=== PATIENT | male | born 1935 | race Caucasian/White ===

== ENCOUNTER → 2019-11-29 | Outpatient (CLI) | payer BC ==
[2015-11-08 09:25] VITALS: BP 125/70
[~2019-11-29] MED LIST: ASCO-219 PO; CALCIUM 500+VI1 EACH PO; CONTRAST GIVEN. MC PRN; CYAN100070 PO; GLUC1CAP80 PO; IOHEXOL 240 MG/ML 50ML VIAL. PO ONE; IOHEXOL 300 MG/ML 100ML VIAL. IV ONE; MELO15TA23 PO; METF500T16 PO; SIMV20TA18 PO; SIMV40TA18 PO
--- NOTE | 2019-11-29 16:24 | RAD ---
CT CHEST ABD PELVIS W/CONTRAST Indication: Malignant neoplasm of the ascending colon Technique: Postcontrast CT imaging was performed of the chest, abdomen, pelvis, multiplanar reconstruction images submitted. One or more of the following individualized dose reduction techniques were utilized for this examination: 1. Automated exposure control 2. Adjustment of the mA and/or kV according to patient size 3. Use of iterative reconstruction technique. Comparison: 01/18/2016; October 19, 2015. Chest Findings: Small focus of somewhat more linear-appearing density of the right upper lobe near the apex likely fibrotic change also linear likely fibrotic change left lung apex. There is also linear-appearing/reticular density of the right upper lobe abutting the pleural surface image 23 series 2, similar in appearance. There is again small partially calcified subpleural right lower lobe nodule image 31 series 2. No new suspicious pulmonary nodularity, infiltrate, pleural or pericardial fluid, or pneumothorax identified. Small 0.5 cm subpleural left lower lobe nodule image 48 series 2 is stable. Tubular ascending thoracic aorta is again ectatic about 4 cm, no dissection flap identified. There is again coronary calcification. No new significantly enlarged nodes are identified of the chest. There is again multilevel thoracic spondylosis. IMPRESSION: 1. No new suspicious pulmonary nodularity or chest lymphadenopathy is identified. 2. There is emphysema. 3. There is coronary calcification. 4. There is again ectatic ascending thoracic aorta about 4 cm. Abdomen pelvis FINDINGS: No new focal abnormality is identified of the pancreas, liver, spleen. Both kidneys enhance, no hydronephrosis. There is again relative atrophy of the right kidney comparing with the left, also lobulated contour greater superiorly of the right kidney which is stable in appearance. There is scattered plaque of the abdominal aorta and iliac arteries. Bowel is not significantly dilated. There is no free fluid or free air. No new significant lymphadenopathy is identified. There is no new adrenal nodularity. Gallbladder is present without obvious intraluminal abnormality by CT. There is prostatomegaly about 5.6 m transverse by 4.4 cm AP by about 4.8 cm CC with mild indentation upon the urinary bladder. There is again some fat in the inguinal canals greater on the left, no bowel. There is multilevel lumbar degenerative disc disease, also facet degenerative change. There is again shallow ventral hernia near the umbilicus containing partial wall of small bowel best seen image 43 series 6, similar appearance. IMPRESSION: 1. There is no new evidence of metastatic disease of the abdomen or pelvis. 2. There is again relative atrophy of the right kidney comparing with the left, also stable lobulated contour of the superior right kidney. 3. There is stable small, shallow ventral hernia containing partial wall of the small bowel. 4. There is mild prostatomegaly, prostate cancer screening advised if not already performed. Electronically signed by: Silas Lagunas MD (11/29/2019 4:21 PM) [id number]
== END | disposition home or self-care (01) ==
LOC: CT 08:50
PROVIDERS: ATTEND Internal Medicine Hematology & Oncology
DX: C18.2 Malignant neoplasm of ascending colon (principal); M47.814 Spondylosis without myelopathy or radiculopathy, thoracic region; J43.8 Other emphysema; I25.10 Atherosclerotic heart disease of native coronary artery without angina pectoris; I77.810 Thoracic aortic ectasia; R91.1 Solitary pulmonary nodule; N26.1 Atrophy of kidney (terminal); K43.9 Ventral hernia without obstruction or gangrene; M51.36 Other intervertebral disc degeneration, lumbar region; I70.0 Atherosclerosis of aorta
CPT/HCPCS: 71260; 74177; Q9966; Q9967

== ENCOUNTER 2020-05-30 16:55 | Emergency (ER) | payer BC ==
[~2020-05-30] VITALS: Ht 177.8 cm; Wt 72.2 kg
[~2020-05-30 16:55] MED LIST changes: -ASCO-219 PO; +ASCO500T53 PO; -CONTRAST GIVEN. MC PRN; -IOHEXOL 240 MG/ML 50ML VIAL. PO ONE; -IOHEXOL 300 MG/ML 100ML VIAL. IV ONE
--- NOTE | 2020-05-30 18:34 | PHYS DOC ---
Past Medical History Past Medical History: Cancer, Constipation, Other Additional Past Medical Histor: CROHNS DISEASE, NEUROPATY, COLON CANCER Past Surgical History: Cancer Surgery Smoking Status: Former Smoker Alcohol Use: Occasionally General Adult EDM: Chief Complaint: LOWER BACK PAIN OR INJURY HPI: HPI: Patient is a 84 year old male with a past medical history of crohns, hyperlipedmia, and restless leg syndrome presents with the chief complaint right lower back/flank pain x 2 days. Pain located right lower back/flank with radiation to left lower abdomen. Patient denies any nausea or vomiting. Patient states similar symptoms in the past related to crohns flare up. Patient states usually crohns with constipation causes his current symptoms. His normal treatment with crohns medications and miralax not relieving symptoms as usual. Patient states he yesterday and several small BMs and just prior to arrival a large BM but pain continues. History obtained from the patient. Patient is alert and x4. Patient arrived by private vehicle he is accompanied by family member. Review of Systems: Review of Systems: Constitutional: Denies fever or chills. [] Eyes: Denies change in visual acuity. [] HENT: Denies nasal congestion or sore throat. [] Respiratory: Denies cough or shortness of breath. [] Cardiovascular: Denies chest pain or edema. [] GI: Positive abdominal pain positive constipation no nausea no vomiting no diarrhea : Denies dysuria. [] Musculoskeletal: Denies back pain or joint pain. [] Integument: Denies rash. [] Neurologic: Denies headache, focal weakness or sensory changes. [] Endocrine: Denies polyuria or polydipsia. [] Lymphatic: Denies swollen glands. [] Psychiatric: Denies depression or anxiety. [] Heart Score: Risk Factors: Risk Factors: DM, Current or recent (<one month) smoker, HTN, HLP, family history of CAD, obesity. Risk Scores: Score 0 - 3: 2.5% MACE over next 6 weeks - Discharge Home Score 4 - 6: 20.3% MACE over next 6 weeks - Admit for Clinical Observation Score 7 - 10: 72.7% MACE over next 6 weeks - Early Invasive Strategies Allergies: Allergies: Allergies Coded Allergies Type Severity Reaction Last Updated Verified No Known Drug Allergies 11/08/15 No Physical Exam: PE: Constitutional: Well developed, well nourished, no acute distress, non-toxic appearance. [] HENT: Normocephalic, atraumatic, bilateral external ears normal, oropharynx moist, no oral exudates, nose normal. [] Eyes: EOMI, conjunctiva normal, no discharge. [] Neck: Normal range of motion, no tenderness, supple, no stridor. [] Cardiovascular:Heart rate regular rhythm, no murmur [] Lungs & Thorax: No respiratory distress Abdomen: Bowel sounds normal, soft, no tenderness, [] Skin: Warm, dry, no erythema, no rash. [] Back: No tenderness, no CVA tenderness. [] Extremities: No tenderness, no cyanosis, no clubbing, ROM intact, no edema. [] Neurologic: Alert and oriented X 3, normal motor function, normal sensory function, no focal deficits noted. [] Psychologic: Affect normal, judgement normal, mood normal. [] Current Patient Data: Vital Signs: Vital Signs Date Time Temp Pulse Resp B/P (MAP) Pulse Ox O2 Delivery O2 Flow Rate FiO2 05/30/20 18:07 97.8 165/79 (107) 99 Room Air 97.8 EKG: EKG: [] Radiology/Procedures: Radiology/Procedures: [] Course & Med Decision Making: Course & Med Decision Making Pertinent Labs and Imaging studies reviewed. (See chart for details) [] Patient was evaluated for chief complaint. Work-up consisted of laboratory analysis and radiologic imaging. Results reviewed and discussed with patient and son. No acute lab or radiate logic abnormalities found. Patient states abdominal pain has somewhat improved. Patient did not receive any medication treatment in the ER. Patient states pain is exacerbated with movement. Suspect possible muscular skeletal cause. Patient does again state similar symptoms with Crohn's letter and constipation. Patient will be discharged home with magnesium citrate and Ultram for pain. Patient advised to continue all his current Crohn's medications. Dragon Disclaimer: Dragon Disclaimer: This electronic medical record was generated, in whole or in part, using a voice recognition dictation system. Departure Departure Impression: Primary Impression: Abdominal pain Additional Impressions: Flank pain Constipation Disposition: HOME, SELF-CARE Condition: STABLE Referrals: DEONNA DUFF MD (PCP) Scripts Magnesium Citrate (MAGNESIUM CITRATE) 296 Ml Solution 296 ML PO ONCE, #296 ML Prov: KARLY RAMOS I DO 05/30/20 Tramadol Hcl (ULTRAM) 50 Mg Tablet 1 TAB PO PRN BID PRN for pain MDD 2 Tablet(s) for 30 Days, #20 TAB 0 Refills Prov: KARLY RAMOS DO 05/30/20 Justicifation of Admission Dx: Justifications for Admission: Justification of Admission Dx: N/A KARLY RAMOS DO May 30, 2020 18:34
[2020-05-30 19:09] LABS: BASO # 0.1 x10^3/uL (0.0-0.2); BASO % 1 % (0-3); EOS # 0.1 x10^3/uL (0.0-0.7); EOS % 1 % (0-3); HEMATOCRIT 46.3 % (39.0-53.0); HEMOGLOBIN 16.3 g/dL (13.0-17.5); LYMPH % 26 % (24-48); MEAN CORPUSCULAR HEMOGLOBIN 32 pg (25-35); MEAN CORPUSCULAR HGB CONC 35 g/dL (31-37); MEAN CORPUSCULAR VOLUME 91 fL (79-100); MONO # 0.6 x10^3/uL (0.0-1.1); MONO % 8 % (0-9); NEUT # 4.9 x10^3/uL (1.8-7.7); NEUT % 65 % (31-73); PLATELET COUNT 270 x10^3/uL (140-400); RED BLOOD COUNT 5.09 x10^6/uL (4.30-5.70); WHITE BLOOD COUNT 7.7 x10^3/uL (4.0-11.0)
[2020-05-30 19:19] LABS: CALCIUM 9.1 mg/dL (8.5-10.1); CREATININE 1.1 mg/dL (0.7-1.3); GFR 63.6; POTASSIUM 4.5 mmol/L (3.5-5.1)
[2020-05-30 19:25] LABS: ALBUMIN 4.1 g/dL (3.4-5.0); ALBUMIN/GLOBULIN RATIO 1.1 (1.0-1.7); TOTAL BILIRUBIN 0.6 mg/dL (0.2-1.0); TOTAL PROTEIN 7.9 g/dL (6.4-8.2)
[2020-05-30] MEDS ORDERED: IOHEXOL 300 MG/ML 100ML VIAL. IV ONE (19:30)
[2020-05-30] MEDS ORDERED: CONTRAST GIVEN. MC PRN (19:45)
--- NOTE | 2020-05-30 20:05 | RAD ---
CT abdomen and pelvis with contrast PQRS statement: CT scans at this facility use dose reduction including either automated exposure control, iterative reconstructions, and /or weight based radiation dosing via mA and kV modification when appropriate to reduce radiation dose to as low as reasonably achievable. Contrast: 75 mL Omnipaque 300 intravenous contrast. HISTORY: Abdominal pain. COMPARISON: CT abdomen and pelvis November 29, 2019. Abdomen findings: Lumbar disc disease with disc osteophytes contribute to spinal canal and neural foraminal stenoses L4-5 and L5-S1. Lung bases unremarkable. A few scattered calcifications of the pancreas and mild atrophy may represent changes of chronic pancreatitis. No edema of the gland to suggest acute pancreatitis. Atrophy and scarring of the right kidney. Left kidney, adrenal glands, spleen, liver and gallbladder are unremarkable. Aorta and abdominal artery and iliac artery calcified plaque. Mild laxity of the midline ventral abdominal wall likely from rectus diastases without a true hernia sac identified, stable. Markedly tortuous sigmoid colon extensive the right upper quadrant stable and midline positioning of the cecum indicate some mild malrotation of the bowel although stable, the mesenteric vessels have a normal position. Appendix is not visualized could be surgically absent. No obstruction or inflammatory changes in GI tract. No abdominal fluid. No adenopathy. Pelvis findings: Diverticuli at the dome of the bladder. Prostate increased nodular enlargement at its base likely hyperplasia, stable. Rectum and bones are unremarkable. IMPRESSION: 1. No acute process. 2. Chronic incidental findings again demonstrated as described above. Electronically signed by: Clifford Escobedo MD (05/30/2020 8:01 PM) [facility]
[2020-05-30 21:00] VITALS: BP 168/68
[2020-05-30] MEDS ORDERED: MAGN296S68 PO (21:14)
[2020-05-30] MEDS ORDERED: TRAM-48 PO (21:14)
== END 2020-05-30 21:32 | disposition home or self-care (01) ==
LOC: ER 16:55
DX: K59.00 Constipation, unspecified (principal); R10.31 Right lower quadrant pain; Z87.891 Personal history of nicotine dependence; Z98.890 Other specified postprocedural states; Z85.9 Personal history of malignant neoplasm, unspecified
CPT/HCPCS: 36415; 74177; 80053; 83690; 85025; 99285; Q9967

== ENCOUNTER → 2020-08-28 | Outpatient (CLI) | payer BC ==
[~2020-08-28] MED LIST changes: +IOHEXOL 240 MG/ML 50ML VIAL. PO ONE; +IOHEXOL 300 MG/ML 100ML VIAL. IV ONE; +MAGN296S68 PO; +TRAM-48 PO
--- NOTE | 2020-08-28 16:35 | KCIC ---
EXAM: CT Abdomen and Pelvis with IV contrast INDICATION: Reason: Constipation, weight loss, hx. colon CA 10 years ago. / Spl. Instructions: 100mL Omni 300 / History: Colon resection. TECHNIQUE: Multi-detector row CT images were acquired from the lung bases through the abdomen and pelvis with the use of IV contrast. Sagittal and coronal images were acquired from the transaxial data. All CT scans performed at this facility utilize dose optimization techniques as appropriate to the exam, including the following: Automated exposure control and adjustment of the mA and/or KV according to patient size (this includes techniques or standardized protocols for targeted exams where dose is indication/reason for exam). IV CONTRAST: Administered ORAL CONTRAST: Administered COMPARISON: 05/30/[address] with IV contrast FINDINGS: LOWER CHEST: Moderate centrilobular pattern emphysema. LIVER: Unremarkable BILIARY SYSTEM: Gallbladder is unremarkable. Bile ducts are not dilated. PANCREAS: Unremarkable SPLEEN: Unremarkable ADRENALS: Unremarkable KIDNEYS & URETERS: Mild right renal cortical scarring and volume loss. Left kidney is unremarkable. No hydronephrosis, radiopaque stones or solid renal lesions identified. BLADDER: Unremarkable REPRODUCTIVE ORGANS: Mildly enlarged prostate gland measuring 5.4 cm in diameter. GASTROINTESTINAL: There are surgical changes from right hemicolectomy with ileal colonic anastomosis to the mid transverse colon. No findings of bowel obstruction, perforation or acute inflammation. Nodular soft tissue density at the splenic flexure best illustrated on axial image 23 of series 2 and coronal image 25 of series 4 is nonspecific and could represent fecal debris in the setting of an unprepared bowel. However, endoscopic correlation when clinically feasible could be beneficial. There is moderate stool throughout the visualized large bowel. Appendix is surgically absent. MESENTERY/PERITONEUM/RETROPERITONEUM: Unremarkable VASCULAR: Scattered arterial calcifications. No aneurysm, flow-limiting stenosis or dissection noted. LYMPH NODES: No adenopathy OSSEOUS & SOFT TISSUES: Degenerative changes. No fracture or aggressive appearing osseous lesions noted. IMPRESSION: Postop changes from a right hemicolectomy with no findings of bowel obstruction, perforation or acute inflammation. Nonspecific soft tissue nodularity in the lumen of the descending colon proximally is recommended for endoscopic correlation when clinically feasible. No findings suspicious for recurrent colon cancer otherwise noted. Electronically signed by: Hector Guerin MD (08/28/2020 4:32 PM) [id number]
== END | disposition home or self-care (01) ==
LOC: KCIC CT 08:17
PROVIDERS: ATTEND Internal Medicine
DX: N40.0 Benign prostatic hyperplasia without lower urinary tract symptoms (principal); K59.00 Constipation, unspecified; I25.10 Atherosclerotic heart disease of native coronary artery without angina pectoris
CPT/HCPCS: 74177; 82565; Q9966; Q9967

== ENCOUNTER → 2020-12-28 | Outpatient (CLI) | payer BC ==
--- NOTE | 2020-12-28 17:53 | KCIC ---
EXAM: CT ABDOMEN/PELVIS WITH CONTRAST. HISTORY: Crohn disease, colon cancer, elevated CEA. TECHNIQUE: Computed tomography of the abdomen and pelvis was performed after the intravenous administ ration of iodinated contrast. One or more of the following individualized dose reduction techniques w ere utilized for this examination: 1. Automated exposure control. 2. Adjustment of the mA and/or kV according to patient size. 3. Use of iterative reconstruction technique. COMPARISON: 08/28/2020. FINDINGS: Lung windows through the visualized portions of the bases reveal moderate to severe centril obular emphysema and mild superimposed atelectasis or scarring. There are calcifications of the aorti c valve. Bone windows reveal no suspicious lesions. There is cortical scarring at the right renal upper pole. Left kidney is unremarkable. The liver, gal lbladder and spleen are unremarkable. Pancreatic parenchymal calcifications are consistent with chron ic pancreatitis. Mild infrarenal abdominal aortic ectasia measures 2.4 cm. There is no aneurysmal dilatation. Changes of right partial colectomy and ileocolonic anastomosis are suspected. The colon is redundant and tortuous, with the sigmoid portion extending into the right upper quadrant. There is no small bow el obstruction. There are no pathologically enlarged lymph nodes. There is no ascites. There is no cl ear peritoneal or omental metastatic disease. The prostate gland measures 5.5 x 3.7 cm. There is mild diffuse bladder wall thickening. Bladder dive rticula along the dome measure up to 1.7 cm. IMPRESSION: 1. No evidence of metastatic disease. 2. Changes of chronic pancreatitis. 3. Moderate to severe centrilobular emphysema. 4. Aortic valve calcifications. Correlate for aortic stenosis. Electronically signed by: Jose Barbosa MD (12/28/2020 5:50 PM) [id number]
== END ==
LOC: KCIC CT 12:11
PROVIDERS: ATTEND Internal Medicine Gastroenterology
DX: K50.90 Crohn's disease, unspecified, without complications (principal); J43.2 Centrilobular emphysema; K86.1 Other chronic pancreatitis; I25.10 Atherosclerotic heart disease of native coronary artery without angina pectoris; Z85.038 Personal history of other malignant neoplasm of large intestine
CPT/HCPCS: 74177; 82565; Q9966; Q9967